=== PATIENT | female | born 1980 | race Caucasian/White ===

== ENCOUNTER → 2016-10-03 | Outpatient (CLI) | payer OTHER | LOC: BMCIMAGING 09:04 | PROVIDERS: ATTEND Physician Assistant | DX: M77.32 Calcaneal spur, left foot (principal); M25.775 Osteophyte, left foot ==

== ENCOUNTER → 2018-09-11 | Outpatient (CLI) | payer OTHER | LOC: FIMAGING 11:43 | PROVIDERS: ATTEND Obstetrics & Gynecology | DX: O09.522 Supervision of elderly multigravida, second trimester (principal); Z3A.20 20 weeks gestation of pregnancy; O99.342 Other mental disorders complicating pregnancy, second trimester; F31.9 Bipolar disorder, unspecified ==

== ENCOUNTER 2019-01-08 17:57 | Inpatient (IN) | payer OTHER ==
[2019-01-08] MEDS ORDERED: OXYTOCIN/RINGERS LACTATE 1,000 ML IV PRN (19:36)
[2019-01-08] MEDS ORDERED: IBUPROFEN 600 MG TAB PO PRN (19:36)
[2019-01-08] MEDS ORDERED: OLIVE OIL 118 ML BTL MISC PRN (19:36)
[2019-01-08] MEDS ORDERED: EPSOM SALT 454 GM TP PRN (19:36)
[2019-01-08] MEDS ORDERED: MISOPROSTOL 200 MCG TAB PR PRN (19:36)
[2019-01-08] MEDS ORDERED: LR 1,000 ML IV PRN (19:36)
[2019-01-08] MEDS ORDERED: LIDOCAINE 1% 300 MG/30 ML SDV SC PRN (19:36)
--- NOTE | 2019-01-08 19:51 | GHP ---
[f rep st] HISTORY AND PHYSICAL DATE OF ADMISSION: 01/08/2019 ADMITTING DIAGNOSES: 1. Intrauterine at 37 weeks 5 days. 2. Preeclampsia without severe features. HISTORY OF PRESENT ILLNESS: Patient is a 38-year-old 3, para 1-0-1-1, at 37 and 5 weeks with an estimated due date 01/24/2019 by last menstrual period 04/19/2018, and consistent with ultrasound at 9 weeks. The patient was at her routine visit today and had an elevated blood pressure 168/82. Blood pressure was rechecked after patient rested and it was 116/62. Patient admitted to some nausea, no vomiting. Denies any headaches, visual changes, right upper quadrant or epigastric pain. The patient states blood pressures at home are 130s, 140s over 70s, 80s. Patient was given slip to get PIH labs done and they were all normal, except for P:C at 0.96, and on 12/26 it was 0.19. Phone call was made to patient to review her lab results, and her blood pressure at that time per patient at 1615 was 161/85. It was reviewed with patient that with these elevated blood pressures and now proteinuria, she meets criteria for preeclampsia without severe features, and delivery is recommended. Patient was sent to L&D for induction of labor. Ultrasound was done in the office and revealed cephalic. On vaginal exam, she is about fingertip, 50%, and -3 station. The patient presents to Labor and Delivery with no complaints at this time. Patient does have good care at [facility], and presented in her first trimester. is complicated by advanced maternal age, she had negative NIPT, and a level 2 ultrasound was normal. The patient had a followup growth scan at 32 weeks, showing an estimated weight in 89th percentile. is also complicated by history of preeclampsia. Patient is on baby aspirin at this time. She has a history of bipolar disorder, and mood is stable on verapamil and Celexa. [facility] did recommend continued medication regimen throughout , as well as in the period, under the supervision of her psychiatrist. The patient did receive Tdap in the and GBS culture is negative. PAST OB HISTORY: In October 2013, she delivered a viable male , weighing 8 pounds 10 ounces at 38 weeks 2 days, via vaginal delivery; she had mild preeclampsia and was induced and had hemorrhage. In 11/2017, she had SAB at 7 weeks that did not require D and C. PAST STUDY DIRECTOR HISTORY: Age of menarche 12 or 13. Cycles are every 28 days for 6 days, LMP 04/19/2018. She does have a history of abnormal Pap in 2004, LSIL, and had a colposcopy, but no treatment; subsequent Paps all negative. The patient denies a history of any exposure to STDs. CURRENT MEDICATIONS: 1. vitamins. 2. Verapamil 80 mg. 3. Celexa 10 mg. ALLERGIES: Penicillin with anaphylaxis; Cipro, Ceclor, Biaxin, Bactrim with rash; and erythromycin with GI cramps. MEDICAL HISTORY: 1. Advanced maternal age. 2. Asthma. 3. Bipolar disorder. PAST SURGICAL HISTORY: Hernia repair at age 4. FAMILY HISTORY: Father, cirrhosis, kidney/liver transplant 2008. Mother, thyroid dysfunction. Sister, fibromyalgia. Paternal aunt, pancreatic cancer. Maternal grandmother, depression. SOCIAL HISTORY: Patient is and lives with her and their 5 year old son. She is a [id number] mom. She denies any current alcohol, tobacco, or illicit drug use. REVIEW OF SYSTEMS: A 10-point review of systems is negative. Pertinent positives noted in the HPI. LABS: First trimester H and H, 14.7 and 43.5, platelets 212. Blood type AB-positive, antibody negative. RPR nonreactive. Rubella immune. Hepatitis B surface antigen negative. HIV negative. Standard panel declined. TSH in the 1st trimester 0.481. Urine drug screen, UA, and culture all negative. Gonorrhea, chlamydia cultures negative. Innatal screen negative. Single AFP negative. Third trimester H and H, 12.9 and 39.8. One-hour Glucola 96. GBS culture is negative. Varicella is nonimmune. Parvo virus is nonimmune. PHYSICAL EXAMINATION: VITAL SIGNS: Stable. Patient is afebrile at 37.6, heart rate is 107, settled down to 93, respirations 18, initial blood pressures 130/72, 137/69, 133/63. GENERAL: Patient is a well-nourished, well-developed female. Alert and oriented x3. No apparent distress. SKIN: Warm, dry without rash. NEURO: Grossly intact. CARDIOVASCULAR: Regular rate and rhythm. LUNGS: Clear to auscultation bilaterally. ABDOMEN: Gravid, soft, nontender. PELVIC: In office, she was found to be fingertip, 50%, -3. EXTREMITIES: Normal to inspection without calf tenderness or edema. Bedside ultrasound confirms cephalic presentation. heart tones: Category 1 tracing with baseline 140 beats per minute. Positive accelerations. No decelerations. Moderate variability. On TOCO, initially there is uterine irritability. ASSESSMENT/PLAN: Patient is a 38-year-old, G3, para 1-0-1-1, at 37 and 5, who presents for induction of labor secondary to preeclampsia without severe features. 1. Admit to Labor and Delivery. 2. GBS culture is negative. No prophylactic antibiotics needed. 3. Patient's cervix is unfavorable and will proceed with placement of Cervidil for 12 hours. 4. BPs stable at this time, will continue to monitor blood pressures closely. /[id number]/MODL MTDD
[2019-01-08 20:09] LABS: PLATELET COUNT 173 10^3/uL (150-400)
[2019-01-08] MEDS: VERAPAMIL 40 MG TAB PO SCH (21:17)
[2019-01-09] MEDS ORDERED: OXYTOCIN/RINGERS LACTATE 500 ML IV SCH (01:00)
[2019-01-09] MEDS ORDERED: diphenhydrAMINE 25 MG CAP PO ONE (03:00)
[2019-01-09] MEDS ORDERED: TERBUTALINE SULFATE 1 MG/ML VIAL ONE (05:36)
[2019-01-09] MEDS ORDERED: MISOPROSTOL 200 MCG TAB ONE (05:36)
[2019-01-09] MEDS ORDERED: OLIVE OIL 118 ML BTL MISC ONE (05:36)
[2019-01-09] MEDS ORDERED: LIDOCAINE 1% 300 MG/30 ML SDV ONE (05:36)
[2019-01-09] MEDS ORDERED: AMMONIA AROMATIC 1 EACH AMP IH ONE (05:36)
--- NOTE | 2019-01-09 06:32 | OBPROG ---
Labor Progress Note Assessment/Plan: Assessment: 38 y/o @ 37 6/7 weeks for IOL secondary to preeclampsia without severe features Plan: Pt started armida regularly on her own every 2-3 minutes, Cervidil was not able to be placed with frequent ctx pattern Pt examined by RN around 2114, SVE: 250/-3 and rechecked by 1 other nurse to confirm exam Pt was augmented with Pitocin at 0145, now currently at 8 mu/min FHTs - Cat I tracing, reassuring BPs stable 110-120/62-84; pt remains asymptomatic Pt sleeping and not reexamined this morning yet Pt signed out to oncoming physician, Dr. Ortega who will take over care of the pt 01/09/19 06:28 Subjective/Intrapartum Course: 01/09/19 06:32 Pt denies any HAs, visual changes, or RUQ pain; she got some sleep-the Benadryl helped. Her ctx's are not painful. Objective: 01/08/19 19:00 Patient ABO/Rh AB POSITIVE 01/08/19 19:00 Temp Pulse Resp BP Pulse Ox 137/79 H 01/08/19 21:17 - SVE Dilation (cm): 2 Effacement (%): 50 Station: -3 Membranes: Intact - Contraction Pattern Assessment Current Contraction Pattern: Regular (q2-3min) - FHR Assessment Freeman FHR (bpm): 140 FHR Pattern Variability: Moderate FHR Category: 1 - AP Antepartum Course: 01/09/19 06:34 AMA with negative NIPT and normal Level II u/s; f/u growth at 32 weeks showed EFW 89%; Bipolar d/o-mood stable on Celexa and Verapamil, followed by Psychiatrist; Preeclampsia with G1-on baby ASA, baseline labs wnl; h/o asthma- no issues during ; elev BPs at 35 weeks with normal PIH labs and P:C 0.19 Oxytocin Orders Assessment - Pre-Induction/Augmentation Assessment Gestational Age: 37 week(s) and 5 day(s) ICD10 Worksheet Patient Problems: Problems Problem Status Onset AMA (advanced maternal age) multigravida 35+ Acute Encounter for induction of labor Acute Preeclampsia Acute - ICD10 Problem Qualifiers (1) Encounter for induction of labor (2) Preeclampsia (3) AMA (advanced maternal age) multigravida 35+
[2019-01-09] MEDS: VERAPAMIL 40 MG TAB PO SCH ×4 (06:47→21:33)
[2019-01-09] MEDS: MISOPROSTOL 25 MCG CAP PO SCH ×5 (07:02→17:43)
--- NOTE | 2019-01-09 08:00 | OBPROG ---
Labor Progress Note Assessment/Plan: I took over care from Dr. Wall at 0700. Assessment:38 at 37w6d, undergoing induction for preeclampsia without severe features. NO progress overnight. Not in labor yet. Cervic not ripe. Plan: Add cervical ripening to pitocin induction. Transcervical balloon catheter placed after B/R/A discussed. Verbal consent obtained. Attempted digital placement - pt too uncomfortable. Sterile speculum inserted. Able to slide Cook catheter into cervix under direct visualization, and uterine balloon filled with 70 ml of saline and vaginal balloon filled with 20ml of saline. Pt tolerated well. Quiana Ortega MD, FACOG 01/09/19 09:24 Subjective/Intrapartum Course: 01/09/19 06:32 Pt denies any HAs, visual changes, or RUQ pain; she got some sleep-the Benadryl helped. Her ctx's are not painful. 01/09/19 09:30 Pt doing well. Still not having any painful contractions. No ssx preeclampsia - though did have a mild headache last night, but it has resolved without any intervention. NO LOF. no VB. Objective: 01/08/19 19:00 Patient ABO/Rh AB POSITIVE 01/08/19 19:00 Temp Pulse Resp BP Pulse Ox 134/78 H 01/09/19 06:47 37.0 94 144/74 FHR 150 reactive toco - q 1-4, pit at 10 gen - pleasant, NAD CV - RRR chest - CTAB abd - gravid, soft, NT ext - trace BLE edema, 2+ DTRs, no clonus SVE - 2/50/-3 US done before and after placement of transcervical balloon catheter - cephalic presentation confirmed, currently back is up and on maternal left, vertex is LOT. - SVE Dilation (cm): 2 Effacement (%): 50 Station: -3 Membranes: Intact - Contraction Pattern Assessment Current Contraction Pattern: Regular (q1-4) - FHR Assessment Freeman FHR (bpm): 150 FHR Pattern Variability: Moderate FHR Category: 1 - Procedures Non-surgical Procedures: Other (Specify) (transcervical balloon catheter placed , 70ml U, 20 ml V) - AP Antepartum Course: 01/09/19 06:34 AMA with negative NIPT and normal Level II u/s; f/u growth at 32 weeks showed EFW 89%; Bipolar d/o-mood stable on Celexa and Verapamil, followed by Psychiatrist; Preeclampsia with G1-on baby ASA, baseline labs wnl; h/o asthma- no issues during ; elev BPs at 35 weeks with normal PIH labs and P:C 0.19 Oxytocin Orders Assessment - Pre-Induction/Augmentation Assessment Gestational Age: 37 week(s) and 5 day(s) ICD10 Worksheet Patient Problems: Problems Problem Status Onset AMA (advanced maternal age) multigravida 35+ Acute Encounter for induction of labor Acute Preeclampsia Acute
[2019-01-09] MEDS: CITALOPRAM 20 MG TAB PO SCH (08:51)
--- NOTE | 2019-01-09 16:20 | OBPROG ---
Labor Progress Note Assessment/Plan: I took over care from Dr. Wall at 0700. Assessment:38 at 37w6d, undergoing induction for preeclampsia without severe features. NO progress overnight. Not in labor yet. Cervic not ripe. Plan: Add cervical ripening to pitocin induction. Transcervical balloon catheter placed after B/R/A discussed. Verbal consent obtained. Attempted digital placement - pt too uncomfortable. Sterile speculum inserted. Able to slide Cook catheter into cervix under direct visualization, and uterine balloon filled with 70 ml of saline and vaginal balloon filled with 20ml of saline. Pt tolerated well. Quiana Ortega MD, FACOG 01/09/19 09:24 A/P: 38 at 37w6d, undergoing IOL for preeclampsia without severe features. 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 Balloon catheter came out 1230. Minimal progress. Pitocin at 26miu/hr. Options discussed - not recommended to stop IOL, as is for a medical indication - preeclampsia. BPs stable, past few hours not even in preeclamptic range. Will turn pitocin up to max dose of 30. If no progress or no SROM, may stop pitocin and allow to clear for 1-2 hours, then resume induction again. Currrently - ballotable vertex too high to safely attempt AROM. Ambulation and position changes encouraged. Quiana Ortega MD, FACOG 01/09/19 16:09 Subjective/Intrapartum Course: 01/09/19 06:32 Pt denies any HAs, visual changes, or RUQ pain; she got some sleep-the Benadryl helped. Her ctx's are not painful. 01/09/19 09:30 Pt doing well. Still not having any painful contractions. No ssx preeclampsia - though did have a mild headache last night, but it has resolved without any intervention. NO LOF. no VB. 01/09/19 16:20 Pt more uncomfortable with contractions, but they are not painful yet. No ELDER, no vis changes, no epigastric/RuQ pain. Pt frustrated with minimal progress. Objective: 01/08/19 19:00 Patient ABO/Rh AB POSITIVE 01/08/19 19:00 Temp Pulse Resp BP Pulse Ox 122/65 H 01/09/19 12:07 369 88 118/71 (range since 0900 115-131 / 59-75) gen - pleasant, NAD abd - gravid, soft, NT when not armida SVE 3/50/-4 ballotable - SVE Dilation (cm): 3 Effacement (%): 50 Station: -3 Membranes: Intact - Contraction Pattern Assessment Current Contraction Pattern: Regular (q1-4) - FHR Assessment Freeman FHR (bpm): 150 FHR Pattern Variability: Moderate FHR Category: 1 - Procedures Non-surgical Procedures: Other (Specify) (transcervical balloon catheter placed , 70ml U, 20 ml V) - AP Antepartum Course: 01/09/19 06:34 AMA with negative NIPT and normal Level II u/s; f/u growth at 32 weeks showed EFW 89%; Bipolar d/o-mood stable on Celexa and Verapamil, followed by Psychiatrist; Preeclampsia with G1-on baby ASA, baseline labs wnl; h/o asthma- no issues during ; elev BPs at 35 weeks with normal PIH labs and P:C 0.19 Oxytocin Orders Assessment - Pre-Induction/Augmentation Assessment Gestational Age: 37 week(s) and 5 day(s) ICD10 Worksheet Patient Problems: Problems Problem Status Onset AMA (advanced maternal age) multigravida 35+ Acute Encounter for induction of labor Acute Preeclampsia Acute
--- NOTE | 2019-01-09 20:40 | OBPROG ---
Labor Progress Note Assessment/Plan: I took over care from Dr. Wall at 0700. Assessment:38 at 37w6d, undergoing induction for preeclampsia without severe features. NO progress overnight. Not in labor yet. Cervic not ripe. Plan: Add cervical ripening to pitocin induction. Transcervical balloon catheter placed after B/R/A discussed. Verbal consent obtained. Attempted digital placement - pt too uncomfortable. Sterile speculum inserted. Able to slide Cook catheter into cervix under direct visualization, and uterine balloon filled with 70 ml of saline and vaginal balloon filled with 20ml of saline. Pt tolerated well. Quiana Ortega MD, FACOG 01/09/19 09:24 A/P: 38 at 37w6d, undergoing IOL for preeclampsia without severe features. 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 Balloon catheter came out 1230. Minimal progress. Pitocin at 26miu/hr. Options discussed - not recommended to stop IOL, as is for a medical indication - preeclampsia. BPs stable, past few hours not even in preeclamptic range. Will turn pitocin up to max dose of 30. If no progress or no SROM, may stop pitocin and allow to clear for 1-2 hours, then resume induction again. Currrently - ballotable vertex too high to safely attempt AROM. Ambulation and position changes encouraged. Quiana Ortega MD, FACOG 01/09/19 16:09 A/P: 38 at 37w6d, undergoing IOL for preeclampsia without severe features. Cervix not rechecked - was 3/50/-4. Pitocin restarted at 1999. Quiana Ortega MD, FACOG 01/09/19 21:07 Subjective/Intrapartum Course: 01/09/19 06:32 Pt denies any HAs, visual changes, or RUQ pain; she got some sleep-the Benadryl helped. Her ctx's are not painful. 01/09/19 09:30 Pt doing well. Still not having any painful contractions. No ssx preeclampsia - though did have a mild headache last night, but it has resolved without any intervention. NO LOF. no VB. 01/09/19 16:20 Pt more uncomfortable with contractions, but they are not painful yet. No ELDER, no vis changes, no epigastric/RuQ pain. Pt frustrated with minimal progress. 01/09/19 21:14 Pt was able to eat, shower, and FaceTime with her 5 year old. Ready to restart induction process. Objective: 01/08/19 19:00 Patient ABO/Rh AB POSITIVE 01/08/19 19:00 Temp Pulse Resp BP Pulse Ox 118/71 01/09/19 16:19 36.6 116 124/64 gen - pleasant, NAD has been ambulating - SVE Dilation (cm): 3 Effacement (%): 50 Station: -3 Membranes: Intact - Contraction Pattern Assessment Current Contraction Pattern: Regular (q1-4) - FHR Assessment Freeman FHR (bpm): 150 FHR Pattern Variability: Moderate FHR Category: 1 - Procedures Non-surgical Procedures: Other (Specify) (transcervical balloon catheter placed , 70ml U, 20 ml V) - AP Antepartum Course: 01/09/19 06:34 AMA with negative NIPT and normal Level II u/s; f/u growth at 32 weeks showed EFW 89%; Bipolar d/o-mood stable on Celexa and Verapamil, followed by Psychiatrist; Preeclampsia with G1-on baby ASA, baseline labs wnl; h/o asthma- no issues during ; elev BPs at 35 weeks with normal PIH labs and P:C 0.19 Oxytocin Orders Assessment - Pre-Induction/Augmentation Assessment Gestational Age: 37 week(s) and 5 day(s) ICD10 Worksheet Patient Problems: Problems Problem Status Onset AMA (advanced maternal age) multigravida 35+ Acute Encounter for induction of labor Acute Preeclampsia Acute
--- NOTE | 2019-01-09 23:55 | OBPROG ---
Labor Progress Note Assessment/Plan: I took over care from Dr. Wall at 0700. Assessment:38 at 37w6d, undergoing induction for preeclampsia without severe features. NO progress overnight. Not in labor yet. Cervic not ripe. Plan: Add cervical ripening to pitocin induction. Transcervical balloon catheter placed after B/R/A discussed. Verbal consent obtained. Attempted digital placement - pt too uncomfortable. Sterile speculum inserted. Able to slide Cook catheter into cervix under direct visualization, and uterine balloon filled with 70 ml of saline and vaginal balloon filled with 20ml of saline. Pt tolerated well. Quiana Ortega MD, FACOG 01/09/19 09:24 A/P: 38 at 37w6d, undergoing IOL for preeclampsia without severe features. 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 Balloon catheter came out 1230. Minimal progress. Pitocin at 26miu/hr. Options discussed - not recommended to stop IOL, as is for a medical indication - preeclampsia. BPs stable, past few hours not even in preeclamptic range. Will turn pitocin up to max dose of 30. If no progress or no SROM, may stop pitocin and allow to clear for 1-2 hours, then resume induction again. Currrently - ballotable vertex too high to safely attempt AROM. Ambulation and position changes encouraged. Quiana Ortega MD, FACOG 01/09/19 16:09 A/P: 38 at 37w6d, undergoing IOL for preeclampsia without severe features. Cervix not rechecked - was 3/50/-4. Pitocin restarted at 1999. Quiana Ortega MD, FACOG 01/09/19 21:07 A/P: 38 at 37w6d, IOL for preeclampsia without severe features. BPs stable. NO cervical change - not in active labor, despite 24 hr + of pitocin and transcervical balloon catheter. AROM performed - clear fluid. US confirmed cephalic presentation immediately prior to AROM. Expectant mgmt. OK for epidural as desired. Quiana Ortega MD, FACOG 01/09/19 23:52 Subjective/Intrapartum Course: 01/09/19 06:32 Pt denies any HAs, visual changes, or RUQ pain; she got some sleep-the Benadryl helped. Her ctx's are not painful. 01/09/19 09:30 Pt doing well. Still not having any painful contractions. No ssx preeclampsia - though did have a mild headache last night, but it has resolved without any intervention. NO LOF. no VB. 01/09/19 16:20 Pt more uncomfortable with contractions, but they are not painful yet. No ELDER, no vis changes, no epigastric/RuQ pain. Pt frustrated with minimal progress. 01/09/19 21:14 Pt was able to eat, shower, and FaceTime with her 5 year old. Ready to restart induction process. 01/09/19 23:55 Pt getting a little more uncomfortable with contractions. Has been walking. No ELDER, no vis changes, no epigastric/RUQ pain. Objective: 01/08/19 19:00 Patient ABO/Rh AB POSITIVE 01/08/19 19:00 Temp Pulse Resp BP Pulse Ox 140/80 H 01/09/19 21:33 36.8 88 111/76 BP at 2133 = 140/80 gen - pleasant, NAD SVE 3/50/-4 initially unable to palpate vertex. US done - confirmed pocket of fluid presenting, no cord in pocket, then vertex. Gentle AROM performed, with ELIJAH Leach, performing fundal pressure. Release of copious amounts of clear fluid. Pt tolerated well. - SVE Dilation (cm): 3 Effacement (%): 50 Station: -3 Membranes: AROM Amniotic Fluid Color: Clear - Contraction Pattern Assessment Current Contraction Pattern: Regular (q1-4) - FHR Assessment Freeman FHR (bpm): 150 FHR Pattern Variability: Moderate FHR Category: 1 - Procedures Non-surgical Procedures: Amniotomy (clear), Other (Specify) (transcervical balloon catheter placed, 70ml U, 20 ml V) - AP Antepartum Course: 01/09/19 06:34 AMA with negative NIPT and normal Level II u/s; f/u growth at 32 weeks showed EFW 89%; Bipolar d/o-mood stable on Celexa and Verapamil, followed by Psychiatrist; Preeclampsia with G1-on baby ASA, baseline labs wnl; h/o asthma- no issues during ; elev BPs at 35 weeks with normal PIH labs and P:C 0.19 Oxytocin Orders Assessment - Pre-Induction/Augmentation Assessment Gestational Age: 37 week(s) and 5 day(s) ICD10 Worksheet Patient Problems: Problems Problem Status Onset AMA (advanced maternal age) multigravida 35+ Acute Encounter for induction of labor Acute Preeclampsia Acute
[2019-01-10] MEDS ORDERED: fentaNYL 2MCG/ML/BUP 0.1% RTU 100 ML BAG EP ONE (01:12)
[2019-01-10] MEDS ORDERED: PHENYLEPHRINE HCL 100 MCG/ML SYR ONE (01:12)
[2019-01-10] MEDS ORDERED: BUPIVACAINE 0.25% 10 ML SDV ONE ×2 (01:12→14:47)
[2019-01-10] MEDS ORDERED: ONDANSETRON 4 MG/2 ML VIAL IVP PRN (01:43)
[2019-01-10] MEDS ORDERED: NALOXONE HCL 0.4 MG/ML INJ IVP PRN (01:43)
[2019-01-10] MEDS ORDERED: PHENYLEPHRINE HCL 100 MCG/ML SYR IVP PRN (01:43)
--- NOTE | 2019-01-10 01:43 | POSTANESTH ---
Post Anesthetic Evaluation Cardiovascular Status: Normal, Stable Respiratory Status: Normal, Stable Level of Consciousness/Mental Status: Can Participate in Eval Pain Control: Adequate, Prn Tx Ordered Nausea/Vomiting Control: Adequate, Prn Tx Ordered Complications Possibly Related to Anesthesia: None Noted
--- NOTE | 2019-01-10 01:43 | PREANESOB ---
Obstetric Pre-Anesthesia Info - General Info Proposed Procedure: JOSE C : 3 Para: 1 JERAMIE: 01/24/19 Gestational Age: 37 week(s) and 5 day(s) - Info Status: Full Term Monitors: External FHR Pattern: Reassuring - Labor Status Cervical Dilation per last OB SVE: 3 Station per last OB SVE: -3 Amniotic Fluid Color: Clear Pitocin: In Use PIH: Mild Indications for Labor Analgesia: Pain Control Labor Epidural: Proposed Anesthesia Allergies/Adverse Reactions: Allergy/AdvReac Type Severity Reaction Status Date / Time cefaclor [From Ceclor] Allergy Rash Verified 01/08/19 18:38 ciprofloxacin [From Cipro] Allergy Rash Verified 01/08/19 18:39 ciprofloxacin HCl Allergy Rash Verified 01/08/19 18:39 [From Cipro] clarithromycin [From Biaxin] Allergy Rash Verified 01/08/19 18:39 erythromycin lactobionate Allergy Abdominal Verified 01/08/19 18:39 [From Erythrocin] Pain Penicillins Allergy Anaphylaxis Verified 01/08/19 18:39 sulfamethoxazole Allergy Rash Verified 01/08/19 18:39 [From Bactrim] trimethoprim [From Bactrim] Allergy Rash Verified 01/08/19 18:39 Home Medications: Medication Instructions Recorded Folic Acid 1 tab PO DAILY 10/10/13 Herbals/Supplements -Info Only 2 cap PO DAILY 10/10/13 Iron Polysacch/Iron Heme Polyp 1 tab PO DAILY 10/10/13 [Bifera] Vit27&Calcium/Iron/FA 1 tab PO DAILY 10/10/13 [] Verapamil [Calan 40MG (*)] 80 mg PO QID 10/10/13 Celexa 10 mg PO DAILY 01/08/19 Visit Medications: Generic Name Dose Route Start Last Admin Trade Name Freq PRN Reason Stop Dose Admin Citalopram Hydrobromide 10 mg 01/09/19 09:00 01/09/19 08:51 Celexa PO 07/08/19 08:59 10 mg DAILY DOYLE Administration Oxytocin/Lactated Ringer's 1,000 mls @ 125 mls/hr 01/08/19 19:36 Pitocin 20 Units/Lr (Premix) IV PRN PRN Post bleeding Oxytocin/Lactated Ringer's 500 mls @ 0 mls/hr 01/09/19 01:00 Pitocin 30 Units/Lr (Premix) IV 07/08/19 00:59 CONT DOYLE Protocol Per Protocol Ibuprofen 600 mg 01/08/19 19:36 Motrin PO ONCE PRN post , pain Lidocaine HCl 300 mg 01/08/19 19:36 Lidocaine Hcl 1% SC 07/07/19 19:35 ONCE PRN episiotomy Magnesium Sulfate 454 gm 01/08/19 19:36 Epsom Salt TP 07/07/19 19:35 Q1H PRN perineal discomfort Misoprostol 800 - 1,000 mcg 01/08/19 19:36 Cytotec KS ONCE PRN Vaginal Atony/Bleeding Misoprostol 25 mcg 01/08/19 19:45 01/09/19 17:43 Cytotec PO 07/07/19 19:44 Not Given Q4H [facility] [place] Oil 118 ml 01/08/19 19:36 Sweet Oil MISC 07/07/19 19:35 ONCE PRN perineal massage Verapamil HCl 80 mg 01/08/19 21:00 01/09/19 21:33 Calan PO 07/07/19 20:59 80 mg QID [facility] Administration Discontinued Medications Generic Name Dose Route Start Last Admin Trade Name Freq PRN Reason Stop Dose Admin Ammonia (Aromatic Spirit) Confirm 01/09/19 05:36 Ammonia Aromatic Administered 01/09/19 05:37 Dose 1 each IH .STK-MED ONE Bupivacaine HCl Confirm 01/10/19 01:12 Sensorcaine 0.25% Sdv Administered 01/10/19 01:13 Dose 10 ml .ROUTE .STK-MED ONE Diphenhydramine HCl 25 mg 01/09/19 03:00 01/09/19 03:01 Benadryl PO 01/09/19 03:01 25 mg ONCE ONE Administration Fentanyl/Bupivacaine HCl Confirm 01/10/19 01:12 Fentanyl/Bupivacaine/Ns 2 Mcg/Ml 0.1% (Premix Administered 01/10/19 01:13 Dose 100 ml EP .STK-MED ONE Lactated Ringer's 1,000 mls @ 0 mls/hr 01/08/19 19:36 Lr IV 01/09/19 19:35 PRN PRN SEE PROTOCOL CONDITIONS Protocol Per Protocol Lidocaine HCl Confirm 01/09/19 05:36 Lidocaine Hcl 1% Administered 01/09/19 05:37 Dose 300 mg .ROUTE .STK-MED ONE Misoprostol Confirm 01/09/19 05:36 Cytotec Administered 01/09/19 05:37 Dose 1,000 mcg .ROUTE .STK-MED ONE [place] Oil Confirm 01/09/19 05:36 Sweet Oil Administered 01/09/19 05:37 Dose 118 ml MISC .STK-MED ONE Phenylephrine HCl Confirm 01/10/19 01:12 Neosynephrine Administered 01/10/19 01:13 Dose 1,000 mcg .ROUTE .STK-MED ONE Terbutaline Sulfate Confirm 01/09/19 05:36 Brethine Administered 01/09/19 05:37 Dose 1 mg .ROUTE .STK-MED ONE - Anesthesia History Response to Local Anesthetics: Not Applicable Anesthesia & Operative History: No Prior Problems Family Anesthesia History: Not Applicable - Social History Substance Use/Abuse: Denies - Vital Signs Latest Vital Signs (Nursing): Temp Pulse Resp BP Pulse Ox 140/80 H 01/09/19 21:33 Height/Weight (Nursing): Height 175.26 cm Weight 107.048 kg - Focused Exam Neck exam: FROM Mallampati Score: Class 2 Mouth exam: normal dental/mouth exam Pulmonary: no respiratory distress Cardiovascular: regular rate and rhythym Labs: 01/08/19 19:00 Patient ABO/Rh AB POSITIVE 01/08/19 19:00 - Plan Consent Signed and on Chart: Yes Patient/Guardian Understands and Agrees to Plan: Yes Urgent/Emergent Case: Halle caldera completed preop but documented later for safe timely pt care
[2019-01-10] MEDS ORDERED: fentaNYL 2MCG/ML/BUP 0.1% RTU 100 ML EP SCH (02:00)
[2019-01-10] MEDS ORDERED: LR 500 ML IV SCH (02:00)
--- NOTE | 2019-01-10 02:57 | OBPROG ---
Labor Progress Note Assessment/Plan: I took over care from Dr. Wall at 0700. Assessment:38 at 37w6d, undergoing induction for preeclampsia without severe features. NO progress overnight. Not in labor yet. Cervic not ripe. Plan: Add cervical ripening to pitocin induction. Transcervical balloon catheter placed after B/R/A discussed. Verbal consent obtained. Attempted digital placement - pt too uncomfortable. Sterile speculum inserted. Able to slide Cook catheter into cervix under direct visualization, and uterine balloon filled with 70 ml of saline and vaginal balloon filled with 20ml of saline. Pt tolerated well. Quiana Ortega MD, FACOG 01/09/19 09:24 A/P: 38 at 37w6d, undergoing IOL for preeclampsia without severe features. 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 Balloon catheter came out 1230. Minimal progress. Pitocin at 26miu/hr. Options discussed - not recommended to stop IOL, as is for a medical indication - preeclampsia. BPs stable, past few hours not even in preeclamptic range. Will turn pitocin up to max dose of 30. If no progress or no SROM, may stop pitocin and allow to clear for 1-2 hours, then resume induction again. Currrently - ballotable vertex too high to safely attempt AROM. Ambulation and position changes encouraged. Quiana Ortega MD, FACOG 01/09/19 16:09 A/P: 38 at 37w6d, undergoing IOL for preeclampsia without severe features. Cervix not rechecked - was 3/50/-4. Pitocin restarted at 1999. Quiana Ortega MD, FACOG 01/09/19 21:07 A/P: 38 at 37w6d, IOL for preeclampsia without severe features. BPs stable. NO cervical change - not in active labor, despite 24 hr + of pitocin and transcervical balloon catheter. AROM performed - clear fluid. US confirmed cephalic presentation immediately prior to AROM. Expectant mgmt. OK for epidural as desired. Quiana Ortega MD, FACOG 01/09/19 23:52 A/P: 38 at 38 wk, IOL for preeclampsia without severe features. 3 hr s/p SROM. Comfortable with epidural. If no change with next cervix check - will place IUPC. Quiana Ortega MD, FACOG 01/10/19 02:54 Subjective/Intrapartum Course: 01/09/19 06:32 Pt denies any HAs, visual changes, or RUQ pain; she got some sleep-the Benadryl helped. Her ctx's are not painful. 01/09/19 09:30 Pt doing well. Still not having any painful contractions. No ssx preeclampsia - though did have a mild headache last night, but it has resolved without any intervention. NO LOF. no VB. 01/09/19 16:20 Pt more uncomfortable with contractions, but they are not painful yet. No ELDER, no vis changes, no epigastric/RuQ pain. Pt frustrated with minimal progress. 01/09/19 21:14 Pt was able to eat, shower, and FaceTime with her 5 year old. Ready to restart induction process. 01/09/19 23:55 Pt getting a little more uncomfortable with contractions. Has been walking. No ELDER, no vis changes, no epigastric/RUQ pain. 01/10/19 02:56 Pt sleeping soundly after epidural. Objective: 01/08/19 19:00 Patient ABO/Rh AB POSITIVE 01/08/19 19:00 Temp Pulse Resp BP Pulse Ox 140/80 H 01/09/19 21:33 36.7 72 119/63 92% on RA FHR 135 reactive toco - q 2-3 SVE per RN at 0200 4-5/70/-2 - SVE Dilation (cm): 5 Effacement (%): 75 Station: -2 Membranes: AROM Amniotic Fluid Color: Clear - Contraction Pattern Assessment Current Contraction Pattern: Regular (q1-4) - FHR Assessment Freeman FHR (bpm): 135 FHR Pattern Variability: Moderate FHR Category: 1 - Procedures Non-surgical Procedures: Amniotomy (clear), Other (Specify) (transcervical balloon catheter placed, 70ml U, 20 ml V) - AP Antepartum Course: 01/09/19 06:34 AMA with negative NIPT and normal Level II u/s; f/u growth at 32 weeks showed EFW 89%; Bipolar d/o-mood stable on Celexa and Verapamil, followed by Psychiatrist; Preeclampsia with G1-on baby ASA, baseline labs wnl; h/o asthma- no issues during ; elev BPs at 35 weeks with normal PIH labs and P:C 0.19 Oxytocin Orders Assessment - Pre-Induction/Augmentation Assessment Gestational Age: 37 week(s) and 5 day(s) ICD10 Worksheet Patient Problems: Problems Problem Status Onset AMA (advanced maternal age) multigravida 35+ Acute Encounter for induction of labor Acute Preeclampsia Acute
--- NOTE | 2019-01-10 05:31 | OBPROG ---
Labor Progress Note Assessment/Plan: I took over care from Dr. Wall at 0700. Assessment:38 at 37w6d, undergoing induction for preeclampsia without severe features. NO progress overnight. Not in labor yet. Cervic not ripe. Plan: Add cervical ripening to pitocin induction. Transcervical balloon catheter placed after B/R/A discussed. Verbal consent obtained. Attempted digital placement - pt too uncomfortable. Sterile speculum inserted. Able to slide Cook catheter into cervix under direct visualization, and uterine balloon filled with 70 ml of saline and vaginal balloon filled with 20ml of saline. Pt tolerated well. Quiana Ortega MD, FACOG 01/09/19 09:24 A/P: 38 at 37w6d, undergoing IOL for preeclampsia without severe features. 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 Balloon catheter came out 1230. Minimal progress. Pitocin at 26miu/hr. Options discussed - not recommended to stop IOL, as is for a medical indication - preeclampsia. BPs stable, past few hours not even in preeclamptic range. Will turn pitocin up to max dose of 30. If no progress or no SROM, may stop pitocin and allow to clear for 1-2 hours, then resume induction again. Currrently - ballotable vertex too high to safely attempt AROM. Ambulation and position changes encouraged. Quinaa Ortega MD, FACOG 01/09/19 16:09 A/P: 38 at 37w6d, undergoing IOL for preeclampsia without severe features. Cervix not rechecked - was 3/50/-4. Pitocin restarted at 1999. Quiana Ortega MD, FACOG 01/09/19 21:07 A/P: 38 at 37w6d, IOL for preeclampsia without severe features. BPs stable. NO cervical change - not in active labor, despite 24 hr + of pitocin and transcervical balloon catheter. AROM performed - clear fluid. US confirmed cephalic presentation immediately prior to AROM. Expectant mgmt. OK for epidural as desired. Quiana Ortega MD, FACOG 01/09/19 23:52 A/P: 38 at 38 wk, IOL for preeclampsia without severe features. 3 hr s/p AROM. Comfortable with epidural. If no change with next cervix check - will place IUPC. Quiana Ortega MD, FACOG 01/10/19 02:54 A/P: 38 [id number] 38 wk, IOL for preeclampsia without severe features. BPs stable. 6 hr s/p AROM. Current arrest of dilation despite great contraction pattern, so IUPC placed. Pitocin was halved due to tachysystole. Will increase appropriately. Quiana Ortega MD, FACOG 01/10/19 06:22 Subjective/Intrapartum Course: 01/09/19 06:32 Pt denies any HAs, visual changes, or RUQ pain; she got some sleep-the Benadryl helped. Her ctx's are not painful. 01/09/19 09:30 Pt doing well. Still not having any painful contractions. No ssx preeclampsia - though did have a mild headache last night, but it has resolved without any intervention. NO LOF. no VB. 01/09/19 16:20 Pt more uncomfortable with contractions, but they are not painful yet. No ELDER, no vis changes, no epigastric/RuQ pain. Pt frustrated with minimal progress. 01/09/19 21:14 Pt was able to eat, shower, and FaceTime with her 5 year old. Ready to restart induction process. 01/09/19 23:55 Pt getting a little more uncomfortable with contractions. Has been walking. No ELDER, no vis changes, no epigastric/RUQ pain. 01/10/19 02:56 Pt sleeping soundly after epidural. 01/10/19 06:27 Pt was able to get some sleep. Can feel contractions, but no pain. Still leaking lots of fluid. No ELDER, vis changes, epigastric or RUQ pain. Objective: 01/08/19 19:00 Patient ABO/Rh AB POSITIVE 01/08/19 19:00 Temp Pulse Resp BP Pulse Ox 140/80 H 01/09/19 21:33 - SVE Dilation (cm): 6 Effacement (%): 75 Station: -2 Membranes: AROM Amniotic Fluid Color: Clear - Contraction Pattern Assessment Current Contraction Pattern: Regular (q1-4), Tachysystole (ctxns were q 1-2 min so pitocin decreased from 28 to 20, then to 10 and tachysystole resolved) - Procedures Non-surgical Procedures: Amniotomy (clear), Other (Specify) (transcervical balloon catheter placed, 70ml U, 20 ml V) - AP Antepartum Course: 01/09/19 06:34 AMA with negative NIPT and normal Level II u/s; f/u growth at 32 weeks showed EFW 89%; Bipolar d/o-mood stable on Celexa and Verapamil, followed by Psychiatrist; Preeclampsia with G1-on baby ASA, baseline labs wnl; h/o asthma- no issues during ; elev BPs at 35 weeks with normal PIH labs and P:C 0.19 Oxytocin Orders Assessment - Pre-Induction/Augmentation Assessment Gestational Age: 37 week(s) and 5 day(s) ICD10 Worksheet Patient Problems: Problems Problem Status Onset AMA (advanced maternal age) multigravida 35+ Acute Encounter for induction of labor Acute Preeclampsia Acute
[2019-01-10] MEDS: VERAPAMIL 40 MG TAB PO SCH ×4 (05:57→21:45)
[2019-01-10] MEDS: MISOPROSTOL 25 MCG CAP PO SCH (07:24)
--- NOTE | 2019-01-10 09:28 | OBPROG ---
Labor Progress Note Assessment/Plan: Assessment: Plan: Subjective/Intrapartum Course: 01/09/19 06:32 Pt denies any HAs, visual changes, or RUQ pain; she got some sleep-the Benadryl helped. Her ctx's are not painful. 01/09/19 09:30 Pt doing well. Still not having any painful contractions. No ssx preeclampsia - though did have a mild headache last night, but it has resolved without any intervention. NO LOF. no VB. 01/09/19 16:20 Pt more uncomfortable with contractions, but they are not painful yet. No ELDER, no vis changes, no epigastric/RuQ pain. Pt frustrated with minimal progress. 01/09/19 21:14 Pt was able to eat, shower, and FaceTime with her 5 year old. Ready to restart induction process. 01/09/19 23:55 Pt getting a little more uncomfortable with contractions. Has been walking. No ELDER, no vis changes, no epigastric/RUQ pain. 01/10/19 02:56 Pt sleeping soundly after epidural. 01/10/19 06:27 Pt was able to get some sleep. Can feel contractions, but no pain. Still leaking lots of fluid. No ELDER, vis changes, epigastric or RUQ pain. 01/10/19 09:24 patient comfortable. pitocin is at 20. contractions 106-160 mvu. no change in cervix. patient tearful about lack of progress. discussed inadequate contractions. will continue to increase pitocin. repositioned into hands and knees with vernon bag. was having some variable decels but overall status reassuring. will continue to monitor and increase pitocin as needed. Objective: 01/08/19 19:00 Patient ABO/Rh AB POSITIVE 01/08/19 19:00 Temp Pulse Resp BP Pulse Ox 118/60 01/10/19 05:57 - SVE Dilation (cm): 6 Effacement (%): 75 Station: -1 Membranes: AROM Amniotic Fluid Color: Clear - Contraction Pattern Assessment Current Contraction Pattern: Regular (q1-4), Tachysystole (ctxns were q 1-2 min so pitocin decreased from 28 to 20, then to 10 and tachysystole resolved) - Procedures Non-surgical Procedures: Amniotomy (clear), Other (Specify) (transcervical balloon catheter placed, 70ml U, 20 ml V) - AP Antepartum Course: 01/09/19 06:34 AMA with negative NIPT and normal Level II u/s; f/u growth at 32 weeks showed EFW 89%; Bipolar d/o-mood stable on Celexa and Verapamil, followed by Psychiatrist; Preeclampsia with G1-on baby ASA, baseline labs wnl; h/o asthma- no issues during ; elev BPs at 35 weeks with normal PIH labs and P:C 0.19 Oxytocin Orders Assessment - Pre-Induction/Augmentation Assessment Gestational Age: 37 week(s) and 5 day(s) ICD10 Worksheet Patient Problems: Problems Problem Status Onset AMA (advanced maternal age) multigravida 35+ Acute Encounter for induction of labor Acute Preeclampsia Acute
[2019-01-10] MEDS: CITALOPRAM 20 MG TAB PO SCH (09:54)
--- NOTE | 2019-01-10 11:23 | OBPROG ---
Labor Progress Note Assessment/Plan: Assessment: Plan: Subjective/Intrapartum Course: 01/09/19 06:32 Pt denies any HAs, visual changes, or RUQ pain; she got some sleep-the Benadryl helped. Her ctx's are not painful. 01/09/19 09:30 Pt doing well. Still not having any painful contractions. No ssx preeclampsia - though did have a mild headache last night, but it has resolved without any intervention. NO LOF. no VB. 01/09/19 16:20 Pt more uncomfortable with contractions, but they are not painful yet. No ELDER, no vis changes, no epigastric/RuQ pain. Pt frustrated with minimal progress. 01/09/19 21:14 Pt was able to eat, shower, and FaceTime with her 5 year old. Ready to restart induction process. 01/09/19 23:55 Pt getting a little more uncomfortable with contractions. Has been walking. No ELDER, no vis changes, no epigastric/RUQ pain. 01/10/19 02:56 Pt sleeping soundly after epidural. 01/10/19 06:27 Pt was able to get some sleep. Can feel contractions, but no pain. Still leaking lots of fluid. No ELDER, vis changes, epigastric or RUQ pain. 01/10/19 09:24 patient comfortable. pitocin is at 20. contractions 106-160 mvu. no change in cervix. patient tearful about lack of progress. discussed inadequate contractions. will continue to increase pitocin. repositioned into hands and knees with vernon bag. was having some variable decels but overall status reassuring. will continue to monitor and increase pitocin as needed. 01/10/19 11:21 patient feeling more pressure. pitocin is at 26. mvus 150's-160. 8/90/0. patient tearful with excitement. status reassuring. will continue pitocin and reexamine in 1-2 hours or sooner if indicated. Objective: 01/08/19 19:00 Patient ABO/Rh AB POSITIVE 01/08/19 19:00 Temp Pulse Resp BP Pulse Ox 118/60 01/10/19 05:57 - SVE Dilation (cm): 8 Effacement (%): 90, 100 Station: 0 Membranes: AROM Amniotic Fluid Color: Clear - Contraction Pattern Assessment Current Contraction Pattern: Regular (q1-4), Tachysystole (ctxns were q 1-2 min so pitocin decreased from 28 to 20, then to 10 and tachysystole resolved) - Procedures Non-surgical Procedures: Amniotomy (clear), FSE, Other (Specify) (transcervical balloon catheter placed, 70ml U, 20 ml V) - AP Antepartum Course: 01/09/19 06:34 AMA with negative NIPT and normal Level II u/s; f/u growth at 32 weeks showed EFW 89%; Bipolar d/o-mood stable on Celexa and Verapamil, followed by Psychiatrist; Preeclampsia with G1-on baby ASA, baseline labs wnl; h/o asthma- no issues during ; elev BPs at 35 weeks with normal PIH labs and P:C 0.19 Oxytocin Orders Assessment - Pre-Induction/Augmentation Assessment Gestational Age: 37 week(s) and 5 day(s) ICD10 Worksheet Patient Problems: Problems Problem Status Onset AMA (advanced maternal age) multigravida 35+ Acute Encounter for induction of labor Acute Preeclampsia Acute
[2019-01-10] MEDS ORDERED: TRANEXAMIC ACID 1 MG in NS 100 ML IV ONE (12:06)
[2019-01-10] MEDS ORDERED: TRANEXAMIC ACID 1,000 MG in NS 100 ML IV ONE (12:30)
[2019-01-10] MEDS ORDERED: oxyCODONE IR 5 MG TAB PO PRN (12:40)
[2019-01-10] MEDS ORDERED: HYDROCORTISONE 0.5% CREAM TP PRN (12:40)
--- NOTE | 2019-01-10 12:42 | OBDEL ---
Info Type: Vaginal Presentation at Delivery: Vertex L&D Analgesia/Anesthesia Type: Epidural GBS+: No Intrapartum Medications: Generic Name Dose Route Start Last Admin Trade Name Freq PRN Reason Stop Dose Admin Citalopram Hydrobromide 10 mg 01/09/19 09:00 01/10/19 09:54 Celexa PO 07/08/19 08:59 10 mg DAILY DOYLE Administration Fentanyl/Bupivacaine HCl 100 mls @ 0 mls/hr 01/10/19 02:00 01/10/19 08:16 Fentanyl/Bupivacaine/Ns 2 Mcg/Ml 0.1% (Premix EP 01/20/19 01:59 100 mls CONT DOYLE Administration Protocol As Directed Verapamil HCl 80 mg 01/08/19 21:00 01/10/19 05:57 Calan PO 07/07/19 20:59 80 mg QID DOYLE Administration Discontinued Medications Generic Name Dose Route Start Last Admin Trade Name Freq PRN Reason Stop Dose Admin Diphenhydramine HCl 25 mg 01/09/19 03:00 01/09/19 03:01 Benadryl PO 01/09/19 03:01 25 mg ONCE ONE Administration Lactated Ringer's 1,000 mls @ 0 mls/hr 01/08/19 19:36 01/10/19 07:20 Lr IV 01/09/19 19:35 1,000 mls PRN PRN Administration SEE PROTOCOL CONDITIONS Protocol Per Protocol Misoprostol 25 mcg 01/08/19 19:45 01/10/19 07:24 Cytotec PO 07/07/19 19:44 Not Given Q4H [facility] - Hospital Course Intrapartum: 01/09/19 06:32 Pt denies any HAs, visual changes, or RUQ pain; she got some sleep-the Benadryl helped. Her ctx's are not painful. 01/09/19 09:30 Pt doing well. Still not having any painful contractions. No ssx preeclampsia - though did have a mild headache last night, but it has resolved without any intervention. NO LOF. no VB. 01/09/19 16:20 Pt more uncomfortable with contractions, but they are not painful yet. No ELDER, no vis changes, no epigastric/RuQ pain. Pt frustrated with minimal progress. 01/09/19 21:14 Pt was able to eat, shower, and FaceTime with her 5 year old. Ready to restart induction process. 01/09/19 23:55 Pt getting a little more uncomfortable with contractions. Has been walking. No ELDER, no vis changes, no epigastric/RUQ pain. 01/10/19 02:56 Pt sleeping soundly after epidural. 01/10/19 06:27 Pt was able to get some sleep. Can feel contractions, but no pain. Still leaking lots of fluid. No ELDER, vis changes, epigastric or RUQ pain. 01/10/19 09:24 patient comfortable. pitocin is at 20. contractions 106-160 mvu. no change in cervix. patient tearful about lack of progress. discussed inadequate contractions. will continue to increase pitocin. repositioned into hands and knees with vernon bag. was having some variable decels but overall status reassuring. will continue to monitor and increase pitocin as needed. 01/10/19 11:21 patient feeling more pressure. pitocin is at 26. mvus 150's-160. 8/90/0. patient tearful with excitement. status reassuring. will continue pitocin and reexamine in 1-2 hours or sooner if indicated. Indications for Delivery: Preeclampsia Mild Vaginal Delivery - Delivery Provider Delivery Physician/CNM: María Verdugo - Labor and Delivery Onset of Contractions Date: 01/09/19 Onset of Contractions Time: 10:00 Onset of Contractions Type: Induced Rupture of Membranes Date: 01/09/19 Rupture of Membranes Time: 23:45 Rupture of Membranes Type: Artificial Amniotic Fluid Color: Clear Dilation Complete Date: 01/10/19 Dilation Complete Time: 12:00 Placenta Delivery Date: 01/10/19 Placenta Delivery Time: 12:20 Total Hours of Labor: 26 Non-surgical Procedures: Amniotomy (clear), FSE, Other (Specify) (transcervical balloon catheter placed, 70ml U, 20 ml V) Laceration: 2nd Degree Repair: 3-0 Vaginal Sponge Count Correct: Yes Vaginal Needle Count Correct: Yes Vaginal Sweep Performed: Yes EBL: 230 Delivery Events: Retained Placenta (trailing membranes removed, sweep of uterus done. no additional rpoc noted.) - Medications Labor Augmentation/Induction Methods Used: Pitocin Labor Augmentation/Induction Indication: Other (Specify) (preeclampsia) Data JERAMIE: 01/24/19 Gestational Age: 38 week(s) and 0 day(s) Freeman Delivery Date: 01/10/19 Delivery Time: 12:16 Sex of Infant: Female Score (1 Min): 7 Score (5 Min): 9 ICD10 Worksheet Patient Problems: Problems Problem Status Onset AMA (advanced maternal age) multigravida 35+ Acute Encounter for induction of labor Acute Preeclampsia Acute
[2019-01-10] MEDS: DOCUSATE SODIUM 100 MG CAP PO PRN (19:24)
[2019-01-10] MEDS: IBUPROFEN 600 MG TAB PO PRN (19:24)
[2019-01-11] MEDS: IBUPROFEN 600 MG TAB PO PRN ×3 (01:59→15:29)
[2019-01-11] MEDS: ACETAMINOPHEN 325 MG TAB PO PRN ×3 (02:00→15:29)
[2019-01-11] MEDS: VERAPAMIL 40 MG TAB PO SCH ×2 (06:38→13:44)
[2019-01-11] MEDS: DOCUSATE SODIUM 100 MG CAP PO PRN (08:47)
[2019-01-11] MEDS: CITALOPRAM 20 MG TAB PO SCH (08:47)
--- NOTE | 2019-01-11 13:04 | OBGCSDC ---
General Delivery Information - General Info : 3 Para: 2 Abortions: 1 Type: Vaginal L&D Analgesia/Anesthesia Type: Epidural, Local Admission Date: 01/08/19 Labs: Patient ABO/Rh AB POSITIVE 01/08/19 19:00 Hct 36.3 % (38.0-47.0) L 01/08/19 19:00 Temp Pulse Resp BP Pulse Ox 01/11/19 09:07 36.5 C 102 H 16 124/94 H 98 01/11/19 06:38 124/80 H 01/10/19 21:45 140/83 H 01/10/19 20:00 36.8 C 105 H 18 140/83 H 92 01/10/19 16:20 36.9 C 109 H 16 124/71 H 96 01/10/19 16:18 124/71 H 01/10/19 14:21 36.4 C 109 H 18 106/57 L - Hospital Course Antepartum: 01/09/19 06:34 AMA with negative NIPT and normal Level II u/s; f/u growth at 32 weeks showed EFW 89%; Bipolar d/o-mood stable on Celexa and Verapamil, followed by Psychiatrist; Preeclampsia with G1-on baby ASA, baseline labs wnl; h/o asthma- no issues during ; elev BPs at 35 weeks with normal PIH labs and P:C 0.19 Intrapartum: 01/09/19 06:32 Pt denies any HAs, visual changes, or RUQ pain; she got some sleep-the Benadryl helped. Her ctx's are not painful. 01/09/19 09:30 Pt doing well. Still not having any painful contractions. No ssx preeclampsia - though did have a mild headache last night, but it has resolved without any intervention. NO LOF. no VB. 01/09/19 16:20 Pt more uncomfortable with contractions, but they are not painful yet. No ELDER, no vis changes, no epigastric/RuQ pain. Pt frustrated with minimal progress. 01/09/19 21:14 Pt was able to eat, shower, and FaceTime with her 5 year old. Ready to restart induction process. 01/09/19 23:55 Pt getting a little more uncomfortable with contractions. Has been walking. No ELDER, no vis changes, no epigastric/RUQ pain. 01/10/19 02:56 Pt sleeping soundly after epidural. 01/10/19 06:27 Pt was able to get some sleep. Can feel contractions, but no pain. Still leaking lots of fluid. No ELDER, vis changes, epigastric or RUQ pain. 01/10/19 09:24 patient comfortable. pitocin is at 20. contractions 106-160 mvu. no change in cervix. patient tearful about lack of progress. discussed inadequate contractions. will continue to increase pitocin. repositioned into hands and knees with vernon bag. was having some variable decels but overall status reassuring. will continue to monitor and increase pitocin as needed. 01/10/19 11:21 patient feeling more pressure. pitocin is at 26. mvus 150's-160. 8/90/0. patient tearful with excitement. status reassuring. will continue pitocin and reexamine in 1-2 hours or sooner if indicated. Vaginal - Delivery Provider Delivery Physician/CNM: María Verdugo - Diagnosis Labor: Induced Rupture of Membranes Type: Artificial Amniotic Fluid Color: Clear Laceration: 2nd Degree Repair: 3-0 Delivery Events: Retained Placenta (trailing membranes removed, sweep of uterus done. no additional rpoc noted.) - Procedures Non-surgical Procedures: Amniotomy (clear), FSE, Other (Specify) (transcervical balloon catheter placed, 70ml U, 20 ml V) - Delivery Non-surgical Procedures: Amniotomy (clear), FSE, Other (Specify) (transcervical balloon catheter placed, 70ml U, 20 ml V) EBL: 230 Nitro Data JERAMIE: 01/24/19 Gestational Age: 38 week(s) and 1 day(s) [place] Delivery Date: 01/10/19 Delivery Time: 12:16 Sex of : Female Nitro Weight (gm): 3452 g Score (1 Min): 7 Score (5 Min): 9 Discharge Information - Discharge Information Condition: Good Instruction/Follow Up: See Instruction Sheet, One Week (early next week with [place]) , Two Weeks (2-3 wks with therapist), Six Weeks (with [place])
--- NOTE | 2019-01-11 13:08 | POSTANESTH ---
Post Anesthetic Evaluation Cardiovascular Status: Normal, Stable Respiratory Status: Normal, Stable Level of Consciousness/Mental Status: Can Participate in Eval Pain Control: Adequate, Prn Tx Ordered Nausea/Vomiting Control: Adequate, Prn Tx Ordered Complications Possibly Related to Anesthesia: None Noted (no adverse effects from JOSE C)
--- NOTE | 2019-01-11 13:31 | OBPP ---
Progress Note Assessment/Plan: Assessment: PPD 1 s/p preeclampsia without severe features, borderline b/p bipolar disorder Plan: pt desires d/c home. cont to monitor b/p and RTC early next week. 01/11/19 13:26 Subjective/ Course: 01/11/19 13:28 Pt doing well. Amb well and without discomfort. Bld has lightened and only mild cramps. urinating fine. no headache but still borderline b/p. baby is latching well. no nausea or RUQ pain Objective: 01/08/19 19:00 Patient ABO/Rh AB POSITIVE 01/08/19 19:00 Temp Pulse Resp BP Pulse Ox 36.5 C 102 H 16 124/94 H 98 01/11/19 09:07 01/11/19 09:07 01/11/19 09:07 01/11/19 09:07 01/11/19 09:07 Uterine Position/Fundal Height: Umbilicus -1 Uterine Tone: Firm Physical Exam - Physical Exam Abdomen: non-tender, soft, other (FF at umb -1) Extremities: non-tender, pedal edema (mild) Skin: normal color, warm/dry Neuro/Psych: alert, normal mood/affect
[2019-01-11 13:47] VITALS: BP 130/83
== END 2019-01-11 16:15 | disposition home or self-care (01) | DRG 807 ==
LOC: FLD 17:57 → FOB 01-10 14:14
PROVIDERS: ADMIT Obstetrics & Gynecology; ATTEND Obstetrics & Gynecology
DX: O14.04 Mild to moderate pre-eclampsia, complicating childbirth (principal); O70.1 Second degree perineal laceration during delivery; O73.0 Retained placenta without hemorrhage; O99.343 Other mental disorders complicating pregnancy, third trimester; F31.9 Bipolar disorder, unspecified; Z3A.38 38 weeks gestation of pregnancy; Z37.0 Single live birth
CPT/HCPCS: J2370; J2590; J3105